=== PATIENT | female | born 1980 | race Caucasian/White ===

== ENCOUNTER 2016-11-26 14:54 | Emergency (ER) | payer OTHER ==
[2016-11-26 16:02] LABS: Hematocrit 43.1 % (30.3-42.9); Hemoglobin 14.2 gm/dl (10.1-14.3); Mean Corpuscular HGB Conc 33 % (30-34); Mean Corpuscular Hemoglobin 29 pg (28-32); Mean Corpuscular Volume 87 fl (79-97); Red Blood Count 4.97 M/mm3 (3.65-5.03); Red Cell Distribution Width 14.5 % (13.2-15.2); White Blood Count 4.4 K/mm3 (4.5-11.0)
[2016-11-26 16:12] LABS: INR 1.95 (0.87-1.13)
[2016-11-26 16:22] LABS: Anion Gap 16 mmol/L; Blood Urea Nitrogen 6 mg/dL (7-17); Calcium 8.7 mg/dL (8.4-10.2); Carbon Dioxide 27 mmol/L (22-30); Chloride 99.2 mmol/L (98-107); Glucose 87 mg/dL (65-100); Potassium 4.4 mmol/L (3.6-5.0); Sodium 138 mmol/L (137-145)
[2016-11-26 16:48] LABS: Platelet Count 88 K/mm3 (140-440)
[2016-11-26 18:57] LABS: Bilirubin,Urine NEG (Negative); Blood,Urine NEG (Negative); Ketones,Urine NEG (Negative); Leukocyte Esterase,Urine NEG (Negative); Mucus,Urine FEW /HPF; Nitrite,Urine NEG (Negative); Protein,Urine <15 mg/dL mg/dL (Negative); Urobilinogen,Urine < 2.0 mg/dL (<2.0)
--- NOTE | 2016-11-26 23:38 | Emergency Department Report ---
HPI - General Chief Complaint: Dyspnea/Respdistress Time Seen by Provider: 11/26/16 23:36 - HPI HPI: Patient with history of lupus, DVT, PEs presented to the ED with back pain. Pain is located in the upper back. Bilateral shoulder blade. No shortness of breath no chest pain. Patient was being seen by his PCP who recommended she came to ED for further evaluation of this discomfort. ED Past Medical Hx - Past Medical History Hx Deep Vein Thrombosis: Yes Hx Pulmonary Embolism: Yes Hx COPD: Yes Additional medical history: DVT. IVC FILTER PLACEMENT TO RIGHT LEG///Lupus - Social History Smoking Status: Never Smoker Substance Use Type: None - Medications Home Medications: Home Medications Medication Instructions Recorded Confirmed Last Taken Type Hydroxychloroquine [Plaquenil] 200 mg PO QDAY 11/26/16 11/26/16 Unknown History Warfarin [Coumadin] 6 mg PO DAILY@1700 11/26/16 11/26/16 Unknown History ED Review of Systems ROS: Stated complaint: SOB/BACK PAIN/LOW BP/DR OFFICE Other details as noted in HPI Comment: All other systems reviewed and negative Musculoskeletal: back pain Physical Exam - Physical Exam Vital Signs: Vital Signs 11/26/16 11/26/16 15:10 23:35 Temperature 98 F Pulse Rate 72 65 Respiratory 18 16 Rate Blood Pressure 133/87 Blood Pressure 126/76 [Left] O2 Sat by Pulse 100 100 Oximetry Physical Exam: Gen. alert and oriented 3 in no distress Head atraumatic normocephalic Eyes PERR LA EOMI Chest regular rate and rhythm normal S1-S2 lungs clear bilaterally Abdomen soft nondistended Back no point tenderness, mildparavertebral tenderness Neuro no focal deficit. Psych normal mood. ED Course Vital Signs 11/26/16 11/26/16 15:10 23:35 Temperature 98 F Pulse Rate 72 65 Respiratory 18 16 Rate Blood Pressure 133/87 Blood Pressure 126/76 [Left] O2 Sat by Pulse 100 100 Oximetry ED Medical Decision Making - Lab Data Result diagrams: 11/26/16 15:46 11/26/16 15:46 Critical care attestation.: If time is entered above; I have spent that time in minutes in the direct care of this critically ill patient, excluding procedure time. ED Disposition Clinical Impression: Back pain, History of Coumadin therapy Disposition: - TO HOME OR SELFCARE Is pt being admited?: No Does the pt Need Aspirin: No Condition: Stable Instructions: Warfarin (By mouth) Referrals: PRIMARY CARE, [Primary Care Provider] - 3-5 Days
[2016-11-26] MEDS ORDERED: ZOFRAN IV ONE (23:39)
[2016-11-26] MEDS ORDERED: MORPHINE IV ONE (23:39)
[2016-11-27] MEDS ORDERED: NACL ONE (00:47)
--- NOTE | 2016-11-27 01:58 | Cat Scan Report ---
FINAL REPORT PROCEDURE: CT ANGIO CHEST TECHNIQUE: Computerized tomographic angiography of the chest was performed after the IV injection of iodinated nonionic contrast including image processing. The image data was postprocessed using 2-dimensional multiplanar reformatted (MPR) and 3-dimensional (MIP and/or volume rendered) techniques. HISTORY: pain COMPARISON: No prior studies are available for comparison. FINDINGS: Heart and pericardium: Normal. Thoracic aorta: Thoracic aorta is normal in caliber. There is no aneurysm or dissection.. Pulmonary vasculature: There is no pulmonary embolism.. Lymph nodes: No enlarged thoracic lymph nodes. Lungs: Normal. Pleural space: No effusion, thickening, or pneumothorax. Musculoskeletal structures: No significant abnormality. Upper abdominal structures: No significant abnormality. IMPRESSION: There is no pulmonary embolism. There is no thoracic aortic aneurysm or dissection. The lungs are clear and expanded. There are no infiltrates, effusions or pneumothoraces.
[2016-11-27 01:59] VITALS: BP 98/67
== END 2016-11-27 02:31 | disposition home or self-care (01) ==
LOC: ED 14:54
DX: M54.9 Dorsalgia, unspecified (principal); Z79.01 Long term (current) use of anticoagulants
CPT/HCPCS: 36415; 71275; 80048; 81001; 81025; 85027; 85610; 85730; 93005; 93010; 96374; 96375; 99284; J2270; J2405; Q9967